=== PATIENT | female | born 1980 | race Caucasian/White ===

== ENCOUNTER 2019-10-18 20:37 | Emergency (ER) | payer SELFPAY ==
--- NOTE | ~2019-10-18 | CT_ITS ---
EXAMINATION: CT brain wo con EXAM DATE: 10/18/2019 23:06 INDICATION: Headache, hypertension. TECHNIQUE: Spiral CT of the head was performed without contrast. Axial, coronal and sagittal images were reviewed. The dose-length product (DLP) for this examination was 605.33 mGy-cm. The exposure w as tailored according to patient size, and iterative reconstruction (ASIR) was used as additional dos e reduction technique. There is no prior study for comparison. FINDINGS: There is no acute intraparenchymal hemorrhage. No evidence of intraparenchymal brain mass lesion. No evidence of acute infarction. There is no mass effect or midline shift. The ventricles are normal in size. There are no extra-axial collections. There are no acute calvarial fractures. T he orbits are unremarkable. Soft tissue is unremarkable. The visualized sinuses and mastoid air hay ls are well aerated. IMPRESSION: 1. Normal head CT examination. Reviewed, dictated and finalized at location A.
--- NOTE | ~2019-10-18 | XR_ITS ---
EXAMINATION: XR chest 2V EXAM DATE: 10/18/2019 22:26 INDICATION: Hypertension. Headache. TECHNIQUE: Frontal and lateral projections of the chest obtained and reviewed. There is no prior xochilt dy for comparison. FINDINGS: The lungs are clear. There are no pleural effusions. The cardiomediastinal silhouette is within normal limits. There is no pneumothorax suspected. The bones and soft tissues are unremarkab le. IMPRESSION: Normal chest x-ray exam. Reviewed, dictated and finalized at location A. IMPRESSION: Normal chest x-ray exam.
[2019-10-18 21:06] VITALS: BP 181/102; PULSE 116; RESP 16; TEMP 37.1; O2SAT 100
[2019-10-18 21:27] VITALS: BP 168/102; PULSE 105; RESP 17; O2SAT 99
[2019-10-18 21:28] VITALS: RESP 16; O2SAT 99
[2019-10-18 22:00] VITALS: BP 164/101; PULSE 96; RESP 17; O2SAT 99
--- NOTE | 2019-10-18 22:00 | ED.RECABL ---
HPI - Recheck/Abnormal Lab/Rx General Chief Complaint: Recheck/Abnormal Lab/Rx Stated Complaint: increasing blood pressures with headaches Time Seen by Provider: 10/18/19 22:00 Source: patient Mode of arrival: ambulatory Limitations: no limitations History of Present Illness HPI narrative: Patient is a 39-year-old female who presents for evaluation of headache pain. Patient reports onset of headache over her forehead yesterday afternoon. States onset was gradual nature, no thunderclap sensation. No vision changes, nausea or vomiting. Patient does report some photosensitivity and light sensitivity. No numbness or tingling. Patient denies any fever or chills. 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 Patient also reports a history of migraine headaches in . Patient is not currently taking any medications. Patient did have a history of gestational hypertension, this resolved a year and a half ago when she delivered her third child. Patient recently relocated from [place], does not have a primary care provider. Patient denies any current chest pain or shortness of breath. Related Data Allergies Allergy/AdvReac Type Severity Reaction Status Date / Time No Known Allergies Allergy Verified 10/18/19 23:31 Review of Systems Review of Systems: Narrative: CONSTITUTIONAL: Denies fever, chills, or sweats. EYES: Denies visual changes, redness, or discharge. ENT: Denies rhinorrhea, congestion, sore throat, or otalgia. CARDIOVASCULAR: Denies chest pain, palpitations, or edema. RESPIRATORY: Denies cough or dyspnea. GASTROINTESTINAL: Denies abdominal pain, nausea, vomiting SKIN: Denies rash or itching. MUSCULOSKELETAL: Denies back pain, joint pain, or myalgia. NEUROLOGIC: Reports headache, denies numbness or weakness PMFSH Past Medical History Medical History Gestational hypertension Surgical History Surgical History History of tonsillectomy Social History Social History (Updated 10/18/19 @ 22:16 by Dana Wills MD) Smoking status: Never smoker Alcohol intake: current Alcohol use details: Social, weekends only Substance use: never Exam Narrative: Exam Narrative: GENERAL: Awake, alert, conversant HEAD: Normocephalic, atraumatic. EYES: PERRLA and EOMI. ENT: Nares clear, no rhinorrhea or epistaxis. Mucous membranes moist. NECK: Supple. CHEST: No respiratory distress, breathing even and non labored HEART: Regular rate, sinus rhythm ABDOMEN:Non distended, non tender EXTREMITIES: Normal range of motion. No edema. SKIN: Warm, dry, no rash. NEURO:No focal deficits. Alert and oriented x3 Course Vital Signs Vital signs: Vital Signs Temperature 37.1 C 10/18/19 21:06 Pulse Rate 116 H 10/18/19 21:06 Respiratory Rate 16 10/18/19 21:06 Blood Pressure 181/102 H 10/18/19 21:06 Pulse Oximetry 100 10/18/19 21:06 Temperature 37.1 C 10/18/19 21:06 Pulse Rate 96 10/18/19 22:00 Respiratory Rate 17 10/18/19 22:00 Blood Pressure 164/101 H 10/18/19 22:00 Pulse Oximetry 99 10/18/19 22:00 MDM - Recheck/Abnormal Lab/Rx MDM Narrative Medical decision making narrative: Patient presented for evaluation of headache, and has been noticing high blood pressure readings at home. The time of assessment, ABCs are intact, patient is hypertensive and tachycardic. Patient denying any chest pain, shortness of breath. Her headache features seem somewhat consistent with a migraine, patient does states she has a migraine history. Laboratory results are reassuring. No elevation in troponin or acute kidney injury. Patient's headache was treated with migraine medications and her blood pressure down trended and her headache resolved. I feel this is less
--- NOTE | 2019-10-18 22:07 | ECG_ITS ---
Measurements Intervals [place] Rate: 82 P: 66 MO: 134 QRS: -9 QRSD: 94 T: 12 QT: 402 QTc: 472 Interpretive Statements SINUS RHYTHM POSSIBLE LEFT ATRIAL ENLARGEMENT NONSPECIFIC T-WAVE ABNORMALITY- INFERIOR LEADS BORDERLINE ECG Electronically Signed On 10-19-2019 7:43:44 CDT by Dao Foster D.O.
[2019-10-18 22:27] LABS: Basophils Absolute Auto 0.1 K/mm3 (0.0-0.1); Basophils Percent Auto 0.6 % (0.2-1.2); Eosinophils Absolute Auto 0.1 K/mm3 (0-0.3); Eosinophils Percent Auto 1.2 % (0-4.4); Hematocrit 38.5 % (37.0-47.0); Hemoglobin 12.8 g/dL (12.0-15.0); Immature Granulocyte Absolute 0.02 K/mm3 (0.00-0.031); Immature Granulocyte Percent A 0.2 % (0-0.5); Lymphocytes Absolute Auto 2.16 K/mm3 (0.9-3.2); Lymphocytes Percent Auto 23.1 % (18.3-44.2); Mean Corpuscular HGB Conc 33.2 g/dl (32-36); Mean Corpuscular Hemoglobin 29.6 pg (26-34); Mean Corpuscular Volume 89.1 fl (80-100); Mean Platelet Volume 9.6 fl (7.4-10.4); Monocytes Absolute Auto 0.6 K/mm3 (0.1-0.6); Monocytes Percent Auto 6.3 % (2.6-8.5); Neutrophils Absolute Auto 6.4 K/mm3 (1.3-6.7); Neutrophils Percent Auto 68.6 % (45.5-73.1); Platelet Count Result 270 k/mm3 (150-375); Red Blood Count 4.32 M/mm3 (4.2-5.4); Red Cell Distribution Width 12.6 % (11.5-14.5); White Blood Count 9.4 K/mm3 (4.5-10.0)
[2019-10-18 22:37] LABS: Prothrombin Time 13.1 Seconds (11.1-14.7)
[2019-10-18 22:38] LABS: Partial Thromboplastin Time 26.9 SECONDS (22.3-36.8)
[2019-10-18] MEDS: SODIUM CHLORIDE 0.9% IV 1,000 ML 999 ML IV CONT (22:41)
[2019-10-18 22:42] LABS: Anion Gap 7 mmol/L (8-16); Blood Urea Nitrogen 17 mg/dL (7-17); Calcium 8.8 mg/dL (8.4-10.2); Carbon Dioxide 29 mmol/L (22-30); Chloride 100 mmol/L (98-107); Estimated CRCL calculation 64 ml/min; Estimated Glomerular Filt Rate > 60; Glucose 95 mg/dL (65-105); Potassium 3.3 mmol/L (3.4-5.0); Sodium 136 mmol/L (137-145)
[2019-10-18] MEDS: diphenhydrAMINE HCl INJ 50 MG/ML VIAL 25 MG IV PUSH (22:42)
[2019-10-18] MEDS: ASPIRIN 81 MG CHEWABLE TABLET 324 MG PO (22:42)
[2019-10-18 22:54] LABS: Troponin I < 0.012 ng/mL (0.000-0.034)
[2019-10-18] MEDS: MAGNESIUM SULF 2 GM/WATER 50ML 2 GM/50 ML BAG IVPB (23:19)
[2019-10-18 23:35] VITALS: BP 167/98; PULSE 83
[2019-10-19] MEDS: hydroCHLOROthiazide 25 MG TABLET PO (00:05)
[2019-10-19] MEDS: hydrALAZINE HCL 20 MG/ML VIAL 10 MG IV PUSH (00:05)
[2019-10-19 00:07] VITALS: BP 168/103; PULSE 86; RESP 18; O2SAT 99
--- NOTE | 2019-10-19 00:13 | PC.NURSE ---
pt reports relief of pain at this time. pt resting with lights dimmed, call light in reach. denies any needs/concerns. will continue to monitor pt for baseline status changes.
[2019-10-19 00:26] VITALS: BP 155/97; PULSE 101; RESP 17; O2SAT 97
[2019-10-19 00:47] VITALS: BP 143/86; PULSE 96; RESP 16; O2SAT 98
== END 2019-10-19 00:48 | disposition home or self-care (01) ==
PROVIDERS: Emergency Provider Emergency Medicine
DX: G43.909 Migraine, unspecified, not intractable, without status migrainosus (principal); I10 Essential (primary) hypertension; R94.31 Abnormal electrocardiogram [ECG] [EKG]
CPT/HCPCS: 36415; 70450; 71046; 80048; 84484; 85025; 85610; 85730; 93005; 96361; 96365; 96375; 99284; A9270; J0131; J0360; J1100; J1200; J3475; J7030

== ENCOUNTER 2021-07-12 08:33 | Emergency (ER) | payer BC, SELFPAY ==
--- NOTE | 2021-07-12 08:43 | ED.URI ---
HPI - URI/Sore Throat General Chief Complaint: Upper Respiratory Infection Stated Complaint: sore throat Time Seen by Provider: 07/12/21 08:43 Source: patient and RN notes reviewed History of Present Illness HPI Narrative: Patient is a 40-year-old female who presents the urgent care with complaints of intermittent sinus congestion and nasal drainage for the last 2 weeks. Patient denies of any fevers. Currently states that her main issue is a sore throat for the last week. Denies of any known exposures to illness. Patient has been taking ibuprofen and DayQuil. No other acute complaints. No acute distress noted. Patient aware of the plan of care. Some parts of this dictation were generated by voice recognition software and may contain typographical and/or grammatical inaccuracies. Related Data Home Medications Medication Instructions Recorded Confirmed losartan 50 mg tablet 50 mg PO DAILY 08/13/20 07/12/21 venlafaxine 75 mg capsule,extended 75 mg PO DAILY 08/13/20 07/12/21 release 24 hr atorvastatin 10 mg PO HS 07/12/21 07/12/21 trazodone 100 mg PO HS 07/12/21 07/12/21 Allergies Allergy/AdvReac Type Severity Reaction Status Date / Time cefaclor [From [facility]] Allergy Mild hives Verified 07/12/21 08:59 Sulfa (Sulfonamide Allergy Mild hive Verified 07/12/21 08:59 Antibiotics) Review of Systems Review of Systems: CONSTITUTIONAL: Denies fever, chills, or sweats. EYES: Denies visual changes, redness, or discharge. ENT: Denies rhinorrhea,or otalgia. Reports of intermittent sinus congestion and rhinorrhea with sore throat CARDIOVASCULAR: Denies chest pain, palpitations, or edema. RESPIRATORY: Denies cough or dyspnea. GASTROINTESTINAL: Denies abdominal pain, nausea, vomiting, or diarrhea. GENITOURINARY: Denies dysuria or hematuria. SKIN: Denies rash or itching. MUSCULOSKELETAL: Denies back pain, joint pain, or myalgia. NEUROLOGIC: Denies headache, numbness, or weakness. All other systems reviewed are negative, except as documented in HPI. [facility] Past Medical History Medical History (Updated 07/12/21 @ 09:11 by CHERISE Guzman) Adenomatous colon polyp Anxiety Epigastric pain Gestational hypertension IBS (irritable bowel syndrome) Surgical History Surgical History History of tonsillectomy Family History Family History Father Hypertension Depression Hepatic cirrhosis Mother Depression Diabetes mellitus Grandparent Leukemia Diabetes mellitus Social History Social History Smoking status: Never smoker Alcohol intake: current Alcohol use details: Social, weekends only Substance use: never Comments At the time of my signature, I reviewed and agree with the nursing past medical, surgical, social, and family history. There is no relevant family history pertinent to the patient complaint. Exam Narrative: GENERAL: This is a well-nourished, well-developed patient, in no apparent distress. HEAD: normocephalic, atraumatic. EYES: PERRL. Sclera clear/white. Vision is grossly intact. EARS: External ears normal, auditory canals clear and without drainage, TMs normal without perforation. Hearing grossly intact. NOSE: External nose normal with no obvious nasal discharge, nares without redness, no rhinorrhea. THROAT: Mucous membranes moist. Mild to moderate erythema to posterior oropharynx, more notable to the left. Moderate postnasal drainage without exudate or ulceration NECK: Neck supple, non-tender without lymphadenopathy CARDIOVASCULAR: Regular rate and rhythm without murmurs, gallops, or rubs. RESPIRATORY: Clear to auscultation. Breath sounds equal bilaterally. No wheezes, rales, or rhonchi. SKIN: warm, intact with no suspicious lesions or rash, good texture and turgor. NEURO: awake, alert, and oriented to person, place and
[2021-07-12 08:50] VITALS: BP 111/76; PULSE 98; RESP 16; TEMP 36.8; O2SAT 100
== END 2021-07-12 09:17 | disposition home or self-care (01) ==
PROVIDERS: Emergency Provider Nurse Practitioner Family; PCP Internal Medicine
DX: J02.9 Acute pharyngitis, unspecified (principal)
CPT/HCPCS: 87081; 87880; 99213; G0463

== ENCOUNTER 2022-01-06 14:01 | Emergency (ER) | payer OTHER, SELFPAY ==
[2022-01-06 14:10] VITALS: BP 136/85; PULSE 92; RESP 12; TEMP 36.8; O2SAT 99
--- NOTE | 2022-01-06 14:45 | ED.EYEPROB ---
HPI - Eye Problem General Chief complaint: Ear Stated complaint: Eye Problem Time Seen by Provider: 01/06/22 14:46 Source: patient and RN notes reviewed Mode of arrival: ambulatory Limitations: no limitations History of Present Illness HPI Narrative: 41-year-old female presents concern for left eye redness, drainage, irritation she reports yellow drainage. She reports some mild intermittent nasal congestion. She reports she rubbed her eye a lot when she sleeps, she denies eye pain. She reports her daughter who is ill has been sleeping in the same bed as her. She reports occasional blurred vision, denies other vision changes chief complaint: eye redness Related Data Home Medications Medication Instructions Recorded Confirmed losartan 50 mg tablet 50 mg PO DAILY 08/13/20 01/06/22 venlafaxine 75 mg capsule,extended 75 mg PO TID 08/13/20 01/06/22 release 24 hr (Effexor XR) atorvastatin 10 mg tablet 10 mg PO HS 07/12/21 01/06/22 Allergies Allergy/AdvReac Type Severity Reaction Status Date / Time [facility] Allergy Mild hives Verified 01/06/22 14:20 Sulfa (Sulfonamide Allergy Mild hive Verified 01/06/22 14:20 Antibiotics) Review of Systems Review of Systems: CONSTITUTIONAL: Denies malaise, chills, sweats, or fever. EYES: Denies visual changes. Reports redness, irritation, yellow and watery discharge. ENT: Denies rhinorrhea, congestion, sinus pain, otalgia or sore throat. SKIN: Denies rash or itching. NEUROLOGIC: Denies numbness, weakness, or headache. PSYCHIATRIC: Denies anxiety or depression. All systems reviewed & are unremarkable except as noted in HPI and below PMFSH Past Medical History Medical History Adenomatous colon polyp Anxiety Epigastric pain Gestational hypertension IBS (irritable bowel syndrome) Surgical History Surgical History History of tonsillectomy Family History Family History Father Hypertension Depression Hepatic cirrhosis Mother Depression Diabetes mellitus Grandparent Leukemia Diabetes mellitus Social History Social History (Reviewed 12/06/21 @ 15:25 by Queenie Norris [facility] Smoking status: Never smoker Alcohol intake: current Alcohol use details: Social, weekends only Substance use: never Comments At time of signature, agree with nursing past medical, surgical, social and family history. There is no relevant family history pertinent to the presenting complaint Exam Narrative: GENERAL: Well-appearing, well-nourished, and in no acute distress. HEAD: Normocephalic, atraumatic. EYES: PERRLA, right sclera clear, and EOMI. No nystagmus. Left sclera and conjunctivae yellow drainage noted. Upper and lower eyelid unremarkable, no periorbital edema noted ENT: Nares clear, turbinates pink, no rhinorrhea or epistaxis. Mucous membranes moist. TM pearly salmeron with sharp light reflex bilaterally; no tragal tenderness. NECK: Supple. CHEST: No respiratory distress. Speaks in full sentences. HEART: Regular rate and rhythm. SKIN: Warm, dry, no visible rash. NEURO: Alert and oriented x3. PSYCH: Normal mood and affect Course Course Emergency Course: Patient is aware of diagnosis, understands and agrees to treatment plan. Anticipatory guidance given. Patient agrees to follow-up as directed and is aware of reasons to seek care at the emergency department. Portions of this record may have been created with voice recognition software Level of Care: Express Care Visit Vital Signs Vital signs: Vital Signs Temperature 98.3 F 01/06/22 14:10 Pulse Rate 92 01/06/22 14:10 Respiratory Rate 12 01/06/22 14:10 Blood Pressure 136/85 01/06/22 14:10 Pulse Oximetry 99 01/06/22 14:10 Oxygen Delivery Room Air 01/06/22 14:10 Temperature 98.3 F 01/06/22 14:10 Pulse Rate 92
== END 2022-01-06 15:05 | disposition home or self-care (01) ==
PROVIDERS: Emergency Provider Nurse Practitioner; PCP Internal Medicine
DX: H10.9 Unspecified conjunctivitis (principal); F41.9 Anxiety disorder, unspecified; I10 Essential (primary) hypertension
CPT/HCPCS: 99213; G0463

== ENCOUNTER 2022-01-25 09:31 | Day surgery (SDC) | payer OTHER, SELFPAY ==
[2022-01-13 11:36] VITALS: BMI 26.9
--- NOTE | 2022-01-24 17:36 | PM.IMHP ---
H&P: HPI History of Present Illness Date/Time: 01/24/22 17:36 Chief Complaint: Subcutaneous mass right dorsal wrist Narrative: Nilda is a 41-year-old female with a spherical subcutaneous mass of the right dorsal wrist this is tender to passive wrist extension. This interferes with daily activities. She has had this for a number of months and was to get rid of it. The nature of the surgery including the incision the anesthesia the location the need for tourniquet was well as possibilities of complications such was bruising infection pain bleeding or nerve injury causing numbness and been explained to her and she would like to go ahead with surgery. Review of Systems Review of Systems: All systems reviewed & are unremarkable except as noted in HPI and below ( The history and physical or past medical history) PMFSH Past Medical History Medical History Adenomatous colon polyp Anxiety Epigastric pain Gestational hypertension IBS (irritable bowel syndrome) Surgical History Surgical History History of tonsillectomy Family History Family History Father Hypertension Depression Hepatic cirrhosis Mother Depression Diabetes mellitus Grandparent Leukemia Diabetes mellitus Social History Social History Smoking status: Never smoker Second hand tobacco smoke exposure: No Alcohol intake: current Alcohol use details: Social, weekends only Substance use: never Substance use type: does not use Spiritual care concerns: No Meds Home Medications and Allergies Home Medications Medication Instructions Recorded Confirmed Type venlafaxine 75 mg capsule,extended 75 mg PO TID 08/13/20 01/13/22 History release 24 hr (Effexor XR) atorvastatin 10 mg tablet 10 mg PO HS 07/12/21 01/13/22 History losartan 100 1 tablet PO DAILY 01/13/22 01/13/22 History mg-hydrochlorothiazide 25 mg tablet Allergies Allergy/AdvReac Type Severity Reaction Status Date / Time cefaclor [From [facility]] Allergy Mild Rash Verified 01/13/22 11:34 Sulfa (Sulfonamide Allergy Mild Rash Verified 01/13/22 11:34 Antibiotics) Exam Const: General: cooperative, healthy appearing and no acute distress Nutritional Appearance: well nourished Orientation/consciousness: patient oriented x3 Limitations: no limitations HENMT: Head: normal to inspection Neck: Neck: normal visual inspection Chest: Chest palpation & inspection: normal inspection of the chest Resp: Effort & Inspection: normal respiratory effort Cardio: Rate: regular rate Rhythm: regular rhythm GI: Inspection: normal to inspection Skin: General skin exam: normal color and no rashes or lesions noted Neuro: General: moves all extremities Extrem: Other: 2 cm spherical rubbery subcutaneous right dorsal wrist mass. Psych: Appearance: grossly normal Attitude: cooperative Assessment and Plan Assessment and plan (1) Subcutaneous mass: Code(s): R22.9 - Localized swelling, mass and lump, unspecified Status: Acute Plan Excision of subcutaneous mass of the ri dorsal wrist under MAC
[2022-01-25 10:01] VITALS: BP 140/92; PULSE 88; RESP 20; TEMP 37.3; O2SAT 100
--- NOTE | 2022-01-25 10:53 | P.PNAN_ITS ---
Anes - Initial Pre Proc Eval Procedure: Operation Date: 01/25/22 11:00 Proposed Procedures p Excision Subcutaneous Mass Right Dorsal Wrist - Kyle Hensley MD Date/Time: 01/25/22 10:53 Surgeon: Kyle Hensley MD Pre Op Diagnosis: Subcutaneous Mass Right Dorsal Wrist Patient Data Age: 41 Gender: F Height: 1.63 m Weight: 75.3 kg Last Vital Signs Temp 37.3 C 01/25/22 10:01 Pulse 88 01/25/22 10:01 Resp 20 01/25/22 10:01 BP 140/92 H 01/25/22 10:01 Pulse Ox 100 01/25/22 10:01 O2 Del Method Room Air 01/25/22 10:01 Allergies Allergy/AdvReac Type Severity Reaction Status Date / Time cefaclor [From [facility]] Allergy Mild Rash Verified 01/25/22 09:56 Sulfa (Sulfonamide Allergy Mild Rash Verified 01/25/22 09:56 Antibiotics) Home Medications Medication Instructions Recorded Confirmed Type venlafaxine 75 mg capsule,extended 75 mg PO TID 08/13/20 01/25/22 History release 24 hr (Effexor XR) atorvastatin 10 mg tablet 10 mg PO HS 07/12/21 01/25/22 History losartan 100 1 tablet PO DAILY 01/13/22 01/25/22 History mg-hydrochlorothiazide 25 mg tablet Patient hx anesthesia problems: none Family hx anesthesia problems: none Results Review: All pre-operative results and documents have been reviewed as part of the pre- operative evaluation. [facility] Past Medical History Medical History Adenomatous colon polyp Anxiety Epigastric pain Gestational hypertension IBS (irritable bowel syndrome) Surgical History Surgical History History of tonsillectomy Family History Family History Father Hypertension Depression Hepatic cirrhosis Mother Depression Diabetes mellitus Grandparent Leukemia Diabetes mellitus Social History Social History Smoking status: Never smoker Second hand tobacco smoke exposure: No Alcohol intake: current Alcohol use details: Social, weekends only Substance use: never Substance use type: does not use Living arrangements: with family Spiritual care concerns: No Anes - Eval Final PreProcedure Day of Procedure 01/25/22 10:53 Patient weight: overweight Heart: regular rate and rhythm Lungs: clear to auscultation Airway: Mallampati scale class 1 Neurological: alert and oriented Last oral intake: >/= 8 hours ASA classification: II Emergent: no Anesthetic plan: proceed Anesthesia type and monitoring: general GIVS and standard monitoring Results Review: All pre-operative results and documents have been reviewed as part of the pre- operative evaluation. Informed Consent: The patient's anesthetic plan and its attendant risks and benefits were discussed with the patient/family/POA. Questions were solicited and answers provided to the satisfaction of the patient/family/POA.
--- NOTE | 2022-01-25 11:00 | WPDHPUPDATE1 ---
History and Physical Update Update Date/Time: 01/25/22 11:00 History and Physical has been reviewed, including an updated exam of the patient. There are NO changes in the patient's condition. Risks, benefits, and alternatives have been discussed and questions answered. Patient agrees to proceed with procedure.
[2022-01-25] MEDS: LACTATED RINGERS 1,000 ML 30 ML IV CONT (11:18)
[2022-01-25] MEDS: LIDO 1%/EPINEPHRINE 1:100,000 20 ML VIAL 4 ML INFILTRATE (11:38)
[2022-01-25 12:03] VITALS: BP 131/86; PULSE 82; RESP 16; O2SAT 100
--- NOTE | 2022-01-25 12:20 | W.PM.PROC2 ---
Procedure Note - Detailed Date of Procedure 01/25/22 Pre-op Diagnosis Subcutaneous Mass Right Dorsal Wrist Post-op Diagnosis Same Procedure Performed Excision subcutaneous mass consistent with ganglion cyst right dorsal wrist Surgeon Kyle Hensley MD Lever Miller sivakumar Anesthesia MAC Indications tender subcutaneous mass right dorsal wrist waxing and waning in size Findings amorphous white mass at the dorsal radiocarpal joint Description of Procedure the mass was identified with the patient in the holding area in the wrist marked for the incision. She was then taken to the operating room where she was placed supine on the operating table. She was given IV sedation. A time-out was held and confirmed. The right upper extremity was prepped and draped in usual fashion. The wrist was re-examined and the line drawn for the exact site of the incision. This area was infiltrated with 2% lidocaine with epinephrine. The extremity was seen and the tourniquet inflated to 250 mmHg. The transverse incision was made as marked and dissection was carried bluntly through the subcutaneous tissue through the distal edge of the extensor retinaculum to the level of the extensor tendons. An obvious ganglion cyst was not identified but there was local firm white tissue infused with a slight amount of clear slippery gel. We define this mass is carefully as possible and excised it taking care not to enter the joint capsule. The dimensions of this mass were approximately 8 x 5 mm. It was not sent to pathology. The gap and this tissue was then repaired with buried 3-0 Ethibond sutures at 3 sites. Passive wrist flexion was the assessed after each stitch. Full flexion could be achieved. the tourniquet was released. The subcutaneous tissue was repaired with 4-0 Monocryl suture. The skin was closed with intradermal 4-0 Monocryl and small bandage with Coban wrap was applied. Patient tolerated the procedure well she is being discharged home with instructions wound care follow-up and a prescription for hydrocodone 325 number 6. Estimated Blood Loss 1 Tourniquet Time 1 Drains No Packing No Pathology None sent Complications No immediate complications Condition Stable Disposition Same day
[2022-01-25 12:22] VITALS: BP 123/89; PULSE 77; RESP 16; O2SAT 100
--- NOTE | 2022-01-25 12:24 | WPDANESPN ---
Anes - Prog Note Post-Op Date/Time: 01/25/22 12:24 Cardiovascular status: normal Respiratory status: normal Airway patency: baseline Mental status: baseline Post-Op hydration status: normal Vital Signs: Last Vital Signs Temp 37.3 C 01/25/22 10:01 Pulse 77 01/25/22 12:22 Resp 16 01/25/22 12:22 BP 123/89 01/25/22 12:22 Pulse Ox 100 01/25/22 12:22 O2 Del Method Room Air 01/25/22 12:22 Pain Score (VAS): 0/10 I/O: Intake & Output 01/24/22 01/25/22 01/25/22 23:59 07:59 15:59 Intake Total 0 Balance 0 Patient Feedback: Patient satisfied with anesthetic care.
--- NOTE | 2022-01-25 12:27 | SUR.PHASEII ---
PT AWAKE AND ALERT. STATES MILD PAIN AT /10. MOVEMENT AND SENSATION INTACT TO RT FINGERS. GOOD CAP REFILL. DRESSING D/I. SPOUSE AT BEDSIDE. PT EATING AND DRINKING.
[2022-01-25 12:40] VITALS: BP 128/87; PULSE 75; RESP 16
[2022-01-25] MEDS: oxyCODONE HCL (*CRX) 2.5 MG TAB IR PO (12:41)
--- NOTE | 2022-01-25 12:49 | SUR.PHASEII ---
1240; PT AWAKE AND ALERT. STATES RT WRIST STARTING TO HURT MORE OXYCODONE 2.5MG GIVEN PO. 1250; PT STATES SHE IS READY TO GO HOME. AWAKE AND ALERT. RESP EVEN UNLABORED. PW,Letha.
== END 2022-01-25 12:55 | disposition home or self-care (01) ==
PROVIDERS: PCP Internal Medicine; Visit Provider Plastic Surgery
PROC: (CPT 25111; principal; 2022-01-25 11:00)
DX: R22.9 Localized swelling, mass and lump, unspecified (principal)
CPT/HCPCS: 25111

== ENCOUNTER 2022-05-11 13:27 | Emergency (ER) | payer OTHER, SELFPAY ==
--- NOTE | ~2022-05-11 | XR_ITS ---
EXAMINATION: XR finger 4th RT min 2V DATE: 05/11/2022 14:00 INDICATION: Right hand fourth digit injury. TECHNIQUE: 4 views of right hand fourth digit were obtained. COMPARISON: None. FINDINGS: Bone alignment is normal. There is a stellate fracture of tuft of fourth distal phalanx. Shira int spaces are well maintained. IMPRESSION: 1. Nondisplaced stellate fracture of tuft of fourth distal phalanx. Reviewed, dictated and finalized at location A. STRESS ENGINEER
--- NOTE | 2022-05-11 13:35 | ED.UPPEXIN ---
HPI - Extremity Injury (Upper) General Chief Complaint: Extremity Injury, Upper Stated Complaint: Finger Injury Time Seen by Provider: 05/11/22 13:35 Source: patient and RN notes reviewed History of Present Illness HPI narrative: Patient is a 41-year-old female who presents to urgent care with complaints of right ring finger injury. Patient states that she slammed it in a metal locker yesterday. Patient states this is not a work related injury. Patient has used ice, ibuprofen and elevation. No other acute complaints or injuries. No acute distress noted. Patient aware of the plan of care. Some parts of this dictation were generated by voice recognition software and may contain typographical and/or grammatical inaccuracies. Related Data Home Medications Medication Instructions Recorded Confirmed atorvastatin 10 mg tablet 10 mg PO HS 07/12/21 01/25/22 losartan 100 1 tablet PO DAILY 01/13/22 01/25/22 mg-hydrochlorothiazide 25 mg tablet gabapentin 300 mg capsule 300 mg PO TID 05/11/22 05/11/22 Allergies Allergy/AdvReac Type Severity Reaction Status Date / Time cefaclor [From Counts Include [facility]] Allergy Mild Rash Verified 05/11/22 13:44 Sulfa (Sulfonamide Allergy Mild Rash Verified 05/11/22 13:44 Antibiotics) Review of Systems Review of Systems: CONSTITUTIONAL: Denies fever, chills, or sweats. EYES: Denies visual changes, redness, or discharge. ENT: Denies rhinorrhea, congestion, sore throat, or otalgia. CARDIOVASCULAR: Denies chest pain, palpitations, or edema. RESPIRATORY: Denies cough or dyspnea. GASTROINTESTINAL: Denies abdominal pain, nausea, vomiting, or diarrhea. GENITOURINARY: Denies dysuria or hematuria. SKIN: Denies rash or itching. MUSCULOSKELETAL: Reports of right ring finger injury NEUROLOGIC: Denies headache, numbness, or weakness. All other systems reviewed are negative, except as documented in HPI. [facility] Past Medical History Medical History Adenomatous colon polyp Anxiety Epigastric pain Gestational hypertension IBS (irritable bowel syndrome) Surgical History Surgical History History of tonsillectomy Family History Family History Father Hypertension Depression Hepatic cirrhosis Mother Depression Diabetes mellitus Grandparent Leukemia Diabetes mellitus Social History Social History Smoking status: Never smoker Second hand tobacco smoke exposure: No Alcohol intake: current Alcohol use details: Social, weekends only Substance use: never Substance use type: does not use Living arrangements: with family Spiritual care concerns: No Comments At the time of my signature, I reviewed and agree with the nursing past medical, surgical, social, and family history. There is no relevant family history pertinent to the patient complaint. Exam Narrative: GENERAL: This is a well-nourished, well-developed patient, in no apparent distress. HEAD: normocephalic, atraumatic. EYES: PERRL. Sclera clear/white. Vision is grossly intact. EARS: External ears normal NOSE: External nose normal with no obvious nasal discharge, nares without redness, no rhinorrhea. THROAT: Mucous membranes moist NECK: Neck supple SKIN: 0.25 non active subungual hematoma to the base of the right ring finger nail bed. Warm, intact with no suspicious lesions or rash, good texture and turgor. NEURO: awake, alert, and oriented to person, place and time. There were no obvious focal neurologic abnormalities. EXTREMITIES: positive strong right radial pulse with capillary refill less than 2 seconds. Moderate edema and ecchymosis noted to the palmar test of the right ring finger with moderate tenderness. Course Course Level of Care: Express Care Visit Vital Signs Vital signs: Vital Signs Temperature
[2022-05-11 13:38] VITALS: BP 145/79; PULSE 89; RESP 20; TEMP 37.3; O2SAT 100
== END 2022-05-11 14:20 | disposition home or self-care (01) ==
PROVIDERS: Emergency Provider Nurse Practitioner Family; PCP Internal Medicine
DX: S62.664A Nondisplaced fracture of distal phalanx of right ring finger, initial encounter for closed fracture (principal); W23.0XXA Caught, crushed, jammed, or pinched between moving objects, initial encounter
CPT/HCPCS: 29130; 73140; 99214; G0463

== ENCOUNTER 2025-02-04 14:37 | Outpatient (CLI) | payer OTHER, SELFPAY ==
--- NOTE | ~2025-02-04 | XR_ITS ---
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 Findings: No acute fracture or malalignment. No significant degenerative changes. Soft tissues unremarkable. Impression: No acute fracture or malalignment. Reviewed, dictated and finalized at location P. ILE PIN WORKER Impression: No acute fracture or malalignment.
--- OUTSIDE RECORDS SUMMARY | 2025-02-04 16:00 | XMS_ITS | Encounter Summary ---
Author Organization [facility] Address [address] [place] [address] Care Team Providers Care Transformer Coil Winder Name Role Phone Denise Liu MD Primary Care Provider Encounter Details Date Type Department Care Team (Late st Contact Info) Description 06/08/2021 Splashupt Message Enc [facility] - [place] [address] [place] [address] [address] [place] [address] [place] [address] [place] [address] [address] [place], [place] [id number] medication Social History Tobacco Use Types Packs/Day Years Used Date Smoking Tobacco: Never Smokeless Tobacco: Never Comments:counseled by Dr Kailyn sutherland Alcohol Use Standard Drinks/Week Comments Yes 0 (1 standard drink = 0.6 oz pur e alcohol) socially PHQ-2 Answer Date Recorded PHQ-2 Score - If the patient scores above 3, please move on to questions 3-9 1 06/08/2021 Comments No Sex and Gender Information Value Date Recorded Sex Assigned at Not on file Legal Sex Female 7:42 PM CDT Gender Identity Not on file Sexual Orientation Not on file COVID-19 Exposure Response Date Recorded In the last 10 days, have yo u been in contact with someone who was confirmed or suspected to have Coronavirus/COVID-19? No / Unsure 06/08/2021 8:41 AM CDT documented as of this encounter Functional Status * Calculated C-SSRS Risk Score (Lifetime/Recent) Answer Date of Assessment Author Status No Risk Indicated 06/08/2021 2:53 PM CDT Denise Liu MD Active * [place] Suicide Severity Rating Scale (Screener/Recent Self-Report) Question Answer Date of Assessment Author Status 1. Wish to be (Past 1 Month) No 06/08/2021 2:53 PM CDT Denise Liu MD Active 2. Non-Specific Active Suici keyur Thoughts (Past 1 Month) No 06/08/2021 2:53 PM CDT Denise Liu MD Active 6. Suicidal Behavior (Lifetime) No 06/08/2021 2:53 PM CDT Denise Liu MD Active documented as of this encounter Plan of Treatment Upcoming Encounters Date Type Department Care Team (Late st Contact Info) Description 02/24/2025 10:00 AM CLUB CAR ATTENDANT Appointment [facility] Mammography [address] [place] [address] [place] [address] [place] [address] 02/24/2025 10:45 AM CLUB CAR ATTENDANT Appointment [facility] Ultrasound [address] [place] [address] Denise Liu MD [address] [place] [address] 09/26/2025 7:40 AM CDT [facility] Care [place] [address] [address] [place] [address] Denise Liu MD [address] [place] [address] documented as of this encounter Visit Diagnoses Not on filedocumented in this encounter Additional Health Concerns Infection Onset Date Last Indicated Resolved Time COVID-19 Rule Out 07/30/2021 07/30/2021 07/30/2021 11:59 AM CDT COVID-19 Rule Out 07/30/2021 07/30/2021 07/31/2021 4:03 PM CDT COVID-19 Confirmed 07/30/2021 07/30/2021 2 12:32 AM CDT Assessment Noted Time PHQ-9 Depression Total Score: 5 03/10/19 22 10:44 AM CLUB CAR ATTENDANT documented as of this encounter Care Teams Transformer Coil Winder Relationship Specialty Start Date End Date Denise Liu MD [address] [address] PCP - General INTERNAL MEDICINE 09/16/20 documented as of this encounter
--- OUTSIDE RECORDS SUMMARY | 2025-02-04 16:00 | XMS_ITS | Encounter Summary ---
Author Organization [facility] Address [address] [place] [address] Care Team Providers Care Humanities Teacher Name Role Phone Denise Liu MD Primary Care Provider [phone] Encounter Details Date Type Department Care Team (Late Contact Info) Description 08/02/2021 MyChart Message Enc [facility] Multispecialty Care - [place] [address] [address] [place], [place] [id number] [place] [address] [place] [address] [address] [place], [place] [id number] Covid question Social History Tobacco Use Types Packs/Day Years Used Date Smoking Tobacco: Never Smokeless Tobacco: Never Comments:counseled by Dr Kailyn sutherland Alcohol Use Standard Drinks/Week Comments Yes 0 (1 standard drink = 0.6 oz pur e alcohol) socially PHQ-2 Answer Date Recorded PHQ-2 Score - If the patient scores above 3, please move on to questions 3-9 2 07/22/2021 Comments No Sex and Gender Information Value Date Recorded Sex Assigned at Not on file Legal Sex Female 7:42 PM CDT Gender Identity Not on file Sexual Orientation Not on file COVID-19 Exposure Response Date Recorded In the last 10 days, have yo u been in contact with someone who was confirmed or suspected to have Coronavirus/COVID-19? Yes 07/30/2021 11:17 AM CDT documented as of this encounter Plan of Treatment Upcoming Encounters Date Type Department Care Team (Late Contact Info) Description 02/24/2025 10:00 AM ARCH CUSHION PRESS OPERATOR Appointment [facility] Mammography [address] [place] [address] Denise Liu MD [address] [address] 02/24/2025 10:45 AM ARCH CUSHION PRESS OPERATOR Appointment [facility] Ultrasound [address] [place] [address] Denise Liu MD [address] [place] [address] 09/26/2025 7:40 AM CDT Office Visit [facility] Multispecialty Care - [place] [address] [address] [place] [address] Denise Liu MD [address] [place] [address] documented as of this encounter Visit Diagnoses Not on filedocumented in this encounter Additional Health Concerns Infection Onset Date Last Indicated Resolved Time COVID-19 Confirmed 07/30/2021 07/30/2021 12:32 AM CDT Assessment Noted Time PHQ-9 Depression Total Score: 5 03/10/19 22 10:44 AM ARCH CUSHION PRESS OPERATOR documented as of this encounter Care Teams Humanities Teacher Relationship Specialty Start Date End Date Denise Liu MD [address] [place] [address] PCP - General INTERNAL MEDICINE 09/16/20 documented as of this encounter
--- OUTSIDE RECORDS SUMMARY | 2025-02-04 16:00 | XMS_ITS | Encounter Summary ---
Author Organization [facility] Address [address] [place] [address] Care Team Providers Care Supervisor Wet End Name Role Phone Denise Liu MD Primary Care Provider [phone] Encounter Details Date Type Department Care Team (Late Contact Info) Description 01/06/2022 MyChart Message Enc [facility] Medical Group Multispecialty Care - [place] [address] [place] [address] [address] [place], [place] [phone] [place] [address] [place] [address] [address] [place], [place] [id number] [place] Social History Tobacco Use Types Packs/Day Years Used Date Smoking Tobacco: Never Smokeless Tobacco: Never Comments:counseled by Dr Kailyn sutherland Alcohol Use Standard Drinks/Week Comments Yes 0 (1 standard drink = 0.6 oz pur e alcohol) socially PHQ-2 Answer Date Recorded PHQ-2 Score - If the patient scores above 3, please move on to questions 3-9 1 12/08/2021 Comments No Sex and Gender Information Value Date Recorded Sex Assigned at Not on file Legal Sex Female 7:42 PM CDT Gender Identity Not on file Sexual Orientation Not on file COVID-19 Exposure Response Date Recorded In the last 10 days, have yo u been in contact with someone who was confirmed or suspected to have Coronavirus/COVID-19? No / Unsure 12/08/2021 3:34 PM CDT documented as of this encounter Plan of Treatment Upcoming Encounters Date Type Department Care Team (Late Contact Info) Description 02/24/2025 10:00 AM INGREDIENT MIXER Appointment [facility] Mammography [address] [place] [address] [place] [address] [place] [address] 02/24/2025 10:45 AM INGREDIENT MIXER Appointment [facility] Ultrasound [address] [place] [address] Denise Liu MD [address] [place] [address] 09/26/2025 7:40 AM CDT Office Visit [facility] Medical Group Multispecialty Care - [place] [address] [address] [place] [address] Denise Liu MD [address] [place] [address] documented as of this encounter Visit Diagnoses Not on filedocumented in this encounter Additional Health Concerns Assessment Noted Time PHQ-9 Depression Total Score: 5 03/10/19 22 10:44 AM INGREDIENT MIXER documented as of this encounter Care Teams Supervisor Wet End Relationship Specialty Start Date End Date Denise Liu MD [address] [place] [address] PCP - General INTERNAL MEDICINE 09/16/20 documented as of this encounter
--- OUTSIDE RECORDS SUMMARY | 2025-02-04 16:00 | XMS_ITS | Clinical Summary ---
Author Organization [facility] Address [address] [place] [address] Care Team Providers Care Teasel Setter Name Role Phone Denise Liu MD Primary Care Provider [phone] Allergies Active Allergy Reactions Criticality Noted Date Comments Cefaclor Hives Medium 06/18/2016 Sulfa Antibiotics Hives Medium 07/21/2017 Medications brexpiprazole (REXULTI) 0.5 MG tablet Take 1 tablet (0.5 mg total) by mouth daily. Active losartan-hydroCHLOR Othiazide (HYZAAR) 100-25 MG tabletIndications:E ssential hypertension Take 1 tablet by mouth daily. 90 tablet 3 5 Active atorvastatin (LIPITOR) 10 MG tabletIndications:M ixed hyperlipidemia Take 1 tablet (10 mg total) by mouth nightly at bedtime. 90 tablet 3 5 Active venlafaxine (EFFEXOR) 37.5 MG tablet Take 1 tablet (37.5 mg total) by mouth daily. Active venlafaxine (EFFEXOR) 75 MG tablet Take 1 tablet (75 mg total) by mouth daily. Active Active Problems Problem Noted Date Diagnosed Date Mixed hyperlipidemia 06/08/2021 Screen for colon cancer 12/23/2020 Overview (12/23/2020): Added automatically from request for surgery [id number] History of colon polyps 12/23/2020 Overview (12/23/2020): Added automatically from request for surgery [id number] Essential hypertension 09/16/2020 Moderate episode of recurrent major depressive d isorder 09/16/2020 Overview (03/10/2021): - venlafaxine 225mg daily and sertraline 12.5 mg daily - Ambulatory Referral to Psychology and seen [facility] - Significantly improved symptoms - Follow up routinely Generalized anxiety disorder 09/16/2020 Resolved Problems Problem Noted Date Diagnosed Date Resolved Date Major depression 09/16/2020 09/16/2020 Chronic hypertension affecting 12/10/2017 09/16/2020 Hypertension affecting 10/08/2017 09/16/2020 History of delivery, currently in second trimester 09/07/2017 09/16/2020 Overview (09/16/2020): Both children delivered at 35 weeks gestation Encounters Date Type Department Care Team Description 12/31/2024 11:53 AM CDT - 12/31/2024 11:59 PM CDT Hospital Encounter [facility] Mammography [address] [place] [address] Denise Liu MD Discharge Disposition: Home or Self Care (Routine Discharge) 12/31/2024 Travel 12/27/2024 MyChart Message Enc [facility] Medical Group Multispecialty Care - [place] [address] [place] [address] Denise Liu MD Mammogram from Last 3 Months Immunizations Immunization Administration Dates Next Due Fluzone 6 Months+ Quad (0.5 mL Prefilled Syringe ) 12/08/2021 Influenza (Generic) 12/04/2018 Influenza Adult (Generic) 12/29/2020 Tdap (Generic) 04/02/2015 Family History Medical History Relation Comments Hypertension Father thrombocytosis Father leukemia at70yr Maternal Grandfather Diabetes Mother type 1 Lung Cancer Paternal Grandfather Cancer Paternal Grandmother Relation Status Comments Father Alive Maternal Grandfather Maternal Grandmother Alive Mother Alive Paternal Grandfather Paternal Grandmother Social History Tobacco Use Types Packs/Day Years Used Date Smoking Tobacco: Never Smokeless Tobacco: Never Tobacco Cessation:Counseling Given: Yes Comments:counseled by Dr Liu Alcohol Use Standard Drinks/Week Comments Yes 5 (1 standard drink = 0.6 oz pur e alcohol) socially PHQ-2 Answer Date Recorded Patient Health Questionnaire-2 Score 2 09/25/2024 Comments No Sex and Gender Information Value Date Recorded Sex Assigned at Not on file Legal Sex Female 7:42 PM CDT Gender Identity Not on file Sexual Orientation Not on file Last Filed Vital Signs Vital Sign Reading Time Taken Comments Blood Pressure 129/87 09/25/2024 10:55 AM CDT Pulse 93 09/25/2024 10:55 AM CDT Temperature 36.3 C (97.4 F) 09/25/2024 10:55 AM CDT Respiratory Rate 18 05/12/2023 1:29 PM MATERIALS ASSISTANT Oxygen Saturation 100% 09/25/2024 10:55 AM CDT Inhaled Oxygen Concentration - - Weight 74.8 kg (165 lb) 09/25/2024 10:55 AM CDT Height 162.6 cm (5' 4) 09/25/2024 10:55 AM CDT Body Mass Index 28.32 09/25/2024 10:55 AM CDT Plan of Treatment Upcoming Encounters Date Type Department Care Team (Late st Contact Info) Description 02/24/2025 10:00 AM MATERIALS ASSISTANT Appointment [facility] Mammography [address] [place] [address] Denise Liu MD [address] [place] [address] 02/24/2025 10:45 AM MATERIALS ASSISTANT Appointment [facility] Ultrasound [address] [place] [address] Denise Liu MD [address] [place] [address] 09/26/2025 7:40 AM CDT Office Visit [facility] Medical Group Multispecialty Care - [place] [address] [address] [place] [address] Denise Liu MD [address] [place] [address] Health Maintenance Due Date Last Done Comments Cervical Cancer Screening Pap Smear (Age 30 to 64) Every 3 Years 1980 Hepatitis B Vaccines (1 of 3 - 19+ 3-dose series) 08/13/1999 HPV Vaccines (1 - 3-dose SCDM series) 08/13/2007 COVID-19 Vaccine (3 - season) 2024 05/01/2020, 03/31/2020 Influenza Adult (#1) 2024 12/08/2021, 12/29/2020, 12/02/2019, Additional history exists Cervical Cancer Screening Pap with HPV Testing (Age 30 to 64) Every 5 Years 03/30/2025 03/30/2020 Cervical Cancer Screening with HPV 03/30/2025 DTaP, Tdap and Td Vaccines (2 - Td or Tdap) 04/02/2025 04/02/2015 Annual Physical 09/25/2025 09/25/2024, 03/06, 12/08/2021, Additional history exists Mammogram Screening 12/31/2026 12/31/2024 Hepatitis C Completed 09/16/2020 PHQ-2 (Physician [place]) Completed 09/25/2024 Hepatitis A Vaccines Aged Out No long er eligible based on patient's age to complete this topic Meningococcal B Vaccine Aged Out No l onger eligible based on patient's age to complete this topic Meningococcal Vaccine Aged Out No dayana adolph eligible based on patient's age to complete this topic Pneumococcal Vaccine: Pediatrics (0 to 5 Years) and At-Risk Patients (6 to 49 Years) Aged Out No longer eligible based on patient's age to complete this topic RSV Immunizations Under 20 Months Aged Out No longer eligible based on patient's age to complete this topic Procedures Procedure Name Priority Date/Time Associated Diagnosis Comments MG SCREENING W MELLISSA REENA DIGI Routine 12/31/2024 12:15 PM CDT Encounter for screening mammogram for malignant neoplasm of breast HEPATITIS C ANTIBODY Routine 09/16/2020 3:42 PM CDT Annual physical exam Encounter to establish care Routine general medical examination at a health care facility Encounter for hepatitis C screening test for low risk patient OUTSIDE CYTOPATH CERV/VAG INTERPRET (PAP) 03/30/2020 from Last 3 Months or Most Recently Relevant to Health Maintenance Results * MG SCREENING W MELLISSA REENA DIGI (12/31/2024 12:15 PM CDT) Anatomical Region Laterality Modality Breast Bilateral Mammography 01/01/2025 7:34 AM CDT Impressions 01/01/2025 6:34 PM CDT ===== IMPRESSION: ===== 1. Additional imaging. Right. Assessment: ACR BI-RADS 0 - INCOMPLETE: NEEDS ADDITIONAL IMAGING EVALUATION Recommendation: 1:Additional Imaging Right Comments: Ordered By: DENISE LIU Interpreted By: Galina Aburto, 01/01/2025 7:34 AM Narrative 01/01/2025 6:34 PM CDT [address] [place] [address] EXAMINATION: Digital bilateral screening mammogram with 3-D tomosynthesis EXAM DATE/TIME: 12/31/2024 11:56 AM REASON FOR EXAM: screening COMPARISON: Baseline exam Technique: Digital screening mammography of both breasts was performed in addition to 3-D Tomosynthesis technique. This study was read with the assistance of a computer-aided detection system. Tissue density: The breasts are heterogeneously dense, which may obscure small masses. Findings: Asymmetric tissue within the upper outer quadrant of the right breast. Posterior depth. Left breast without gross abnormality. No malignant microcalcifications. Denise Liu MD MAMMO Final Result * HEPATITIS C ANTIBODY (09/16/2020 3:42 PM CDT) HEPATITIS C AB NON-REACTI VE NON-REACT JACKIE 09/17/2020 6:50 PM CDT [facility] Comment: ANTIBODIES TO HCV NOT DETECTED. DOES NOT EXCLUDE THE POSSIBILITY OF EXPOSURE TO HCV. 09/16/2020 3:42 PM CDT Denise Liu MD LABORATORY Final Result [facility] [address] [place] [address], [place] [phone] [id number] * OUTSIDE CYTOPATH VAG/CERV PAP WITH HPV (03/30/2020) 03/30/2020 Narrative 03/30/2020 Ordered by an unspecified provider. us Documents Scanned SCANNING Final Result from Last 3 Months or Most Recently Relevant to Health Maintenance Insurance [address] Care Teams Teasel Setter Relationship Specialty Start Date End Date Denise Liu MD [address] [place] [address] PCP - General INTERNAL MEDICINE 09/16/20
--- OUTSIDE RECORDS SUMMARY | 2025-02-04 16:00 | XMS_ITS | Encounter Summary ---
Author Organization [facility] Address [address] [place] [address] Care Team Providers Care Correctional Manager Name Role Phone Denise Liu MD Primary Care Provider [phone] Encounter Details Date Type Department Care Team (Late Contact Info) Description 02/13/2023 PodPoster Message Enc [facility] Medical Group Family Medicine - [place] [address] [place] [address] [facility] Provider Screening Social History Tobacco Use Types Packs/Day Years Used Date Smoking Tobacco: Never Smokeless Tobacco: Never Comments:counseled by Dr Kailyn sutherland Alcohol Use Standard Drinks/Week Comments Yes 0 (1 standard drink = 0.6 oz pur e alcohol) socially PHQ-2 Answer Date Recorded Patient Health Questionnaire-2 Score 1 07/22/2022 Comments No Sex and Gender Information Value Date Recorded Sex Assigned at Not on file Legal Sex Female 7:42 PM CDT Gender Identity Not on file Sexual Orientation Not on file documented as of this encounter Plan of Treatment Upcoming Encounters Date Type Department Care Team (Late Contact Info) Description 02/24/2025 10:00 AM PRODUCTION OPERATOR Appointment [facility] Mammography [address] [place] [address] Denise Liu MD [address] [place] [address] 02/24/2025 10:45 AM PRODUCTION OPERATOR Appointment [facility] Ultrasound [address] [place] [address] Denise Liu MD [address] [place] [address], [place] [address] 09/26/2025 7:40 AM CDT Office Visit [facility] Medical Group Multispecialty Care - [place] [address] [address] [place] [address] Denise Liu MD [address] [place] [address] documented as of this encounter Visit Diagnoses Not on filedocumented in this encounter Additional Health Concerns Assessment Noted Time PHQ-9 Depression Total Score: 5 03/10/19 22 10:44 AM PRODUCTION OPERATOR documented as of this encounter Care Teams Correctional Manager Relationship Specialty Start Date End Date Denise Liu MD [address] [place] [address] PCP - General INTERNAL MEDICINE 09/16/20 documented as of this encounter
--- OUTSIDE RECORDS SUMMARY | 2025-02-04 16:00 | XMS_ITS | Encounter Summary ---
Author Organization [facility] Address [address] [place] [address] Care Team Providers Care Double Spindle Shaper Operator Name Role Phone Denise Liu MD Primary Care Provider [phone] Encounter Details Date Type Department Care Team (Latest Contact Info) Description 12/14/2021 Zebra Mobilet Message Enc [facility] Medical Group Multispecialty Care - [place] [address] [place] [address] [address] [place] [address] [place] [address] [place] [address] [address] [place], [place] [id number] [employer] Rx request Social History Tobacco Use Types Packs/Day Years [...] Upcoming Encounters Date Type Department Care Team ( Contact Info) Description 02/24/2025 10:00 AM RECESSING MACHINE OPERATOR Appointment [facility] Mammography [address] [place] [address] Denise Liu MD [facility] [address] 02/24/2025 10:45 AM RECESSING MACHINE OPERATOR Appointment [facility] Ultrasound [address] [address] Denise Liu MD [address] [place] [address] 09/26/2025 7:40 AM CDT Office Visit [facility] Medical Group Multispecialty Care [place] [address] [address] [place] [address] Denise Liu MD [address] [place] [address] documented as of this encounter Visit Diagnoses Not on filedocumented in this encounter Additional Health Concerns Assessment Noted Time PHQ-9 Depression Total Score: 5 03/10/19 22 10:44 AM RECESSING MACHINE OPERATOR documented as of this encounter Care Teams Double Spindle Shaper Operator Relationship Specialty Start Date End Date Denise Liu MD [address] [place] [address] PCP - General INTERNAL MEDICINE 09/16/20 documented as of this encounter
--- OUTSIDE RECORDS SUMMARY | 2025-02-04 16:00 | XMS_ITS | Encounter Summary ---
Author Organization [facility] Address [address] [place] [address] Care Team Providers Care Plate Slitter And Inspector Name Role Phone Denise Liu MD Primary Care Provider [phone] Encounter Details Date Type Department Care Team (Late Contact Info) Description 12/27/2024 Remotiumt Message Enc [facility] Medical Group Multispecialty Care - [place] [address] [address] [place] [address] Denise Liu MD [address] [place] [address] Mammogram Social History Tobacco Use Types Packs/Day Years Used Date Smoking Tobacco: Never Smokeless Tobacco: Never Comments:counseled by Dr Kailyn sutherland Alcohol Use Standard Drinks/Week Comments Yes 5 [...] st Contact Info) Description 02/24/2025 10:00 AM 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 [facility] Mammography [address] [place] [address] Denise Liu MD [address] [address] 02/24/2025 10:45 AM 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 [facility] Ultrasound [address] [place] [address] Denise Liu MD Pending sale to [facility] [address] 09/26/2025 7:40 AM CDT Office Visit [facility] Medical Group Multispecialty Care [place] [address] [address] [place] [address] Denise Liu MD Pending sale to [facility] [address] [address] documented as of this encounter Visit Diagnoses Not on filedocumented in this encounter Additional Health Concerns Assessment Noted Time PHQ-9 Depression Total Score: 5 09/26/19 25 11:18 AM CDT documented as of this encounter Care Teams Plate Slitter And Inspector Relationship Specialty Start Date End Date Denise Liu MD [address] [place] [address] PCP - General INTERNAL MEDICINE 09/16/20 documented as of this encounter
--- OUTSIDE RECORDS SUMMARY | 2025-02-04 16:00 | XMS_ITS | Encounter Summary ---
Author Organization [facility] Address [address] [place] [address] Care Team Providers Care Combination Building Inspector Name Role Phone Denise Liu MD Primary Care Provider [phone] Encounter Details Date Type Department Care Team (Late st Contact Info) Description 03/17/2023 Secure-NOK Message Enc [facility] Medical Group Multispecialty Care - [address] [place], [place] [id number] Andrea, [facility] Provider missed shot Social History Tobacco Use Types Packs/Day Years Used Date Smoking Tobacco: Never Smokeless Tobacco: Never Comments:counseled by Dr Kailyn suhterland Alcohol Use Standard Drinks/Week Comments Yes 0 (1 standard drink = 0.6 oz pur e alcohol) socially PHQ-2 Answer Date Recorded Patient Health Questionnaire-2 Score 1 03/17/2023 Comments No Sex and Gender Information Value Date Recorded Sex Assigned at Not on file Legal Sex Female 7:42 PM CDT Gender Identity Not on file Sexual Orientation Not on file documented as of this encounter Functional Status * Over the past 2 weeks, how often have you been bothered by any of the following problems? Question Answer Date of Assessment Author Status Little interest or pleasure in doing things Not at all 03/17/2023 8:48 AM Mary Grace Santos MA Active Feeling down, depressed, or hopeless Several days 03/17/2023 8:48 AM Nadia Santos MA Active Patient Health Questionnaire-2 Score 1 03/17/2023 8:48 AM Mary Grace Santos MA Active * Question Answer Date of Assessment Author Status Trouble falling or staying asleep, or sleeping too much Not at all 03/17/2023 8:48 AM Mary Grace Santos MA Active Feeling tired or having little energy Not at all 03/17/2023 8:48 AM Mary Grace Santos MA Active Poor appetite or overeating Several days 03/17/2023 8:48 AM Mary Grace Santos MA Active Feeling bad about yourself - or that you are a failure or have let yourself or your family down Not at all 03/17/2023 8:48 AM Mary Grace Santos MA Active Trouble concentrating on things, such as reading the newspaper or watching television Not at all 03/17/2023 8:48 AM Mary Grace Santos MA Active Moving or speaking so slowly that other people could have noticed? Or the opposite - being so fidgety or restless that you have been moving around a lot more than usual. Not at all 03/17/2023 8:48 AM Mary Grace Santos MA Active Thoughts that you would be better off or hurting yourself in some way Not at all 03/17/2023 8:48 AM Mary Grace Santos MA Active Patient Health Questionnaire-9 Score 2 03/17/2023 8:48 AM Mary Grace Santos MA Active * Calculated C-SSRS Risk Score (Lifetime/Recent) Answer Date of Assessment Author Status No Risk Indicated 03/17/2023 12:43 PM Denise Turk MD Active * Over the last 2 weeks, how often have you been bothered by any of the following problems? Question Answer Date of Assessment Author Status Feeling nervous, anxious, or on edge 2 03/17/2023 8:48 AM Mary Grace Santos MA Act alissa Not being able to stop or control worrying 1 03/17/2023 8:48 AM Mary Grace Santos MA Ac tive Worrying too much about different things 1 03/17/2023 8:48 AM Mary Grace Santos MA Ac tive Trouble relaxing 1 03/17/2023 8:48 AM Mary Grace Noriega MA Active Being so restless that it is hard to sit still 0 03/17/2023 8:48 AM POUND ATTENDANT Kendall, Mary Grace W, M A Active Becoming easily annoyed or irritable 0 03/17/2023 8:48 AM POUND ATTENDANT Mary Grace Argueta MA Act alissa Feeling afraid as if something awful might happen 0 03/17/2023 8:48 AM POUND ATTENDANT Mary Grace Argueta MA Act alissa NATALIA-7 Total Score 5 03/17/2023 8:48 AM POUND ATTENDANT Mary Grace Gutiérrez ms, MA Active * Cecil Suicide Severity Rating Scale (Screener/Recent Self-Report) Question Answer Date of Assessment Author Status 1. Wish to be (Past 1 Month) No 03/17/2023 12:43 PM POUND ATTENDANT Denise Liu MD Active 2. Non-Specific Active Suicidal Thoughts (Past 1 Month) No 03/17/2023 12:43 PM POUND ATTENDANT Denise Liu MD Active 6. Suicidal Behavior (Lifetime) No 03/17/2023 12:43 PM POUND ATTENDANT Denise Liu MD Active documented as of this encounter Plan of Treatment Upcoming Encounters Date Type Department Care Team (Late st Contact Info) Description 02/24/2025 10:00 AM POUND ATTENDANT Appointment [facility] Mammography [address] [place] [address] Denise Liu MD [address] [place] [address] 02/24/2025 10:45 AM POUND ATTENDANT Appointment [facility] Ultrasound [address] [place] [address] Denise Liu MD [address] [place] [address] 09/26/2025 7:40 AM CDT Office Visit [facility] Medical Group Multispecialty Care - [place] [address] [address] [place] [address] Denise Liu MD [address] [place] [address] documented as of this encounter Visit Diagnoses Not on filedocumented in this encounter Additional Health Concerns Assessment Noted Time PHQ-9 Depression Total Score: 2 03/17/19 24 8:48 AM POUND ATTENDANT documented as of this encounter Care Teams Combination Building Inspector Relationship Specialty Start Date End Date Denise Liu MD [address] [address] PCP - General INTERNAL MEDICINE 09/16/20 documented as of this encounter
--- OUTSIDE RECORDS SUMMARY | 2025-02-04 16:00 | XMS_ITS | Clinical Summary ---
Author Organization [facility] Address [address] [place] [address] Care Team Providers Care Carton Lettering Machine Operator Name Role Phone Denise Liu MD Primary Care Provider [phone] Allergies Active Allergy Reactions Criticality Noted Date Comments Cefaclor Rash,Hives High 06/18/2016 Sulfa Rash Medium 06/18/2016 Medications atorvastatin (LIPITOR) 10 mg tablet Take 1 tablet (10 mg total) by mouth daily 07/22/2022 Active losartan-hydroch lorothiazide (HYZAAR) 100-25 mg per tablet Take 1 tablet by mouth daily 07/22/2022 Active Active Problems No known active problems Social History Tobacco Use Types Packs/Day Years Used Date Smoking Tobacco: Never Assessed Comments No Sex and Gender Information Value Date Recorded Sex Assigned at Not on file Legal Sex Female 3:01 PM CDT Gender Identity Not on file Sexual Orientation Not on file Last Filed Vital Signs Vital Sign Reading Time Taken Comments Blood Pressure 126/82 12/31/2022 5:29 PM CDT Pulse 95 12/31/2022 5:29 PM CDT Temperature 37 C (98.6 F) 12/31/2022 5:29 PM CDT Respiratory Rate 18 12/31/2022 5:29 PM CDT Oxygen Saturation 99% 12/31/2022 5:29 PM CDT Inhaled Oxygen Concentration - - Weight 71.2 kg (157 lb) 12/31/2022 5:29 PM CDT Height 162.6 cm (5' 4.02) 12/31/2022 5:29 PM CD T Body Mass Index 26.94 12/31/2022 5:29 PM CDT Plan of Treatment Health Maintenance Due Date Last Done Comments Breast Cancer Screening-Mammogram 1980 Cervical Cancer Screening 1980 Depression Screening 1980 Hepatitis C Screening 1980 Varicella Vaccines (1 of 2 - 13+ 2-dose series) 1993 Hepatitis B Screening 1998 Regular Well Visit/Exam 18-64 1998 HPV Vaccines (1 - 3-dose SCDM series) 08/13/2007 Covid-19 Vaccine (3 - 2024- season) 2024 05/01/2020, 03/31/2020 Influenza Vaccine (#1) 2024 , 12/29/2020, 12/04/2018, Additional history exists DTaP/Tdap/Td Vaccine (2 - Td or Tdap) 04/02/2025 04/02/2015 Pneumococcal vaccine <65 Aged Out No longer eligible based on patient's age to complete this topic Insurance [facility] Address: [address] [address] [place] [address] Care Teams Carton Lettering Machine Operator Relationship Specialty Start Date End Date Denise Liu MD [address] [place] [address] PCP - General Internal Medicine 12/28/22
== END 2025-02-04 14:38 | disposition home or self-care (01) ==
PROVIDERS: PCP Internal Medicine; Visit Provider Orthopaedic Surgery
DX: M25.511 Pain in right shoulder (principal)
CPT/HCPCS: 73030